=== PATIENT | female | born 1990 | race Caucasian/White ===

== ENCOUNTER 2024-02-11 05:40 | Day surgery (SDC) | payer OTHER ==
[2024-01-22 16:16] VITALS: BP 123/66
[~2024-02-11] VITALS: Ht 167.6 cm; Wt 75.0 kg
[~2024-02-11 05:40] MED LIST: CEFAZOLIN SODIUM 1 GM/10 ML SYR IV SCH; IBLOOD GLUCOSE TEST STRIP 1 EA TEST VI PRN; LACTATED RINGER'S 1,000 ML IV SCH; LIDOCAINE HCL 1% 5 ML SDV INJ ONE
[2024-02-11 06:06] VITALS: BP 134/82
[2024-02-11] MEDS ORDERED: Ropivacaine HCl 0.5% 30 ML VIAL ONE (06:06)
[2024-02-11] MEDS ORDERED: LIDOCAINE HCL 2% 20 ML MDV ONE (06:07)
[2024-02-11] MEDS ORDERED: DEXAMETHASONE SOD PHOS 4 MG/ML VIAL ONE ×2 (06:07→06:55)
[2024-02-11] MEDS ORDERED: KETOROLAC TROMETHAMINE 30 MG/ML VIAL ONE (06:55)
[2024-02-11] MEDS ORDERED: ondansetron HCL 4 MG/2 ML VIAL ONE (06:55)
[2024-02-11] MEDS ORDERED: propofoL 200 MG/20 ML VIAL ONE (06:55)
[2024-02-11] MEDS ORDERED: ACETAMINOPHEN 1,000 MG/100 ML VIAL ONE (06:55)
[2024-02-11] MEDS ORDERED: LIDOCAINE HCL 1% 5 ML SDV INJ ONE (07:00)
[2024-02-11] MEDS ORDERED: IBLOOD GLUCOSE TEST STRIP 1 EA TEST VI PRN ×2 (07:00→07:15)
[2024-02-11] MEDS ORDERED: CEFAZOLIN SODIUM 1 GM/10 ML SYR IV SCH (07:00)
[2024-02-11] MEDS ORDERED: fentaNYL citrate 100 MCG/2 ML VIAL ONE (07:05)
[2024-02-11] MEDS ORDERED: droPERidol 5 MG/2 ML VIAL IV PRN (07:15)
[2024-02-11] MEDS ORDERED: NALOXONE HCL 0.4 MG SYR IV PRN (07:15)
[2024-02-11] MEDS ORDERED: ondansetron HCL 4 MG/2 ML VIAL IV PRN (07:15)
[2024-02-11] MEDS ORDERED: fentaNYL citrate 50 MCG/ML SDV IV PRN (07:15)
--- NOTE | 2024-02-11 07:20 | NUR ---
PT GONE FOR PROCEDURE. PROVIDED PRAYER.
[2024-02-11] MEDS ORDERED: ePHEDrine sulfate 50 MG/ML AMP ONE (07:55)
--- NOTE | 2024-02-11 09:58 | NUR ---
02/11/24 0958 Ese Ruiz 0918 PT ARRIVED IN PACU SLEEPY WITH NO C/O'S. R FOOT ELEVATED ON PILLOW. 924 3 VIEW XRAY OF R FOOT DONE. 929 C/O NAUSEA. COOL AIR ON PT. 933 INAPSINE 0.625MG GIVEN IV. 939 EATING ICE CHIPS PER REQUEST. BLANKETS, L SCD AND SOCK REMOVED R/T FEELING WARM. 949 RESTING. REU.
[2024-02-11 10:10] VITALS: BP 115/60
--- NOTE | 2024-02-11 10:24 | NUR ---
BOBBY 1007 PATIENT INTO DAY SURGERY ROOM 5. VITAL SIGNS COMPLETED. PATIENT ALERT AND ORIENTED. PATIENT A BIT NAUSEATED. PATIENT EATING ICE CHIPS AND RECIEVED MEDICATIONS FROM THE RODENT CONTROL WORKER. PATIENT DENIES PAIN AT THIS TIME. PATIENT PULSES FELT STRONG. PATIENT CAP REFILL LESS THAN 2 SECONDS. IVF INFUSING. SCD'S ON. AT BEDSIDE. DRINKING WATER AND GIVEN JELLO. CALL LIGHT WITHIN REACH NO FUTHER NEEDS. NO QUESITONS.
[2024-02-11 11:05] VITALS: BP 106/74
--- NOTE | 2024-02-11 11:23 | NUR ---
LE 1050 PATIENT NON WEIGHT BEARING TO THE RESTROOM VOIDED CLEAR, AND YELLOW URINE. PATIENT DRESSED SELF WELL. PATIENT GIVEN DISCHARGE INSTRUCTIONS. NO QUESITONS AT THSI TIME. IV D/C'D WNL. PATIENT WHEELED OUT OF FACILITY NO FUTHER NEEDS.
--- NOTE | 2024-02-11 17:16 | OR ---
[facility] [address] [place], [place] [address] Signed DATE OF OPERATION: 02/11/2024 SURGEON: Morris Cruz DPM PREOPERATIVE DIAGNOSES: 1. Hallux rigidus. 2. Hallux valgus, right foot. POSTOPERATIVE DIAGNOSES: 1. Hallux rigidus. 2. Hallux valgus, right foot. TAILER OFF SURGEON: Rl Taveras DPM ANESTHESIA: IV general with local block, right foot. OCCUPATIONAL ANALYST: Bandar Bullock. SPECIMEN TO PATHOLOGY: None. PROCEDURE: Hallux rigidus/hallux valgus correction, right foot. PROCEDURE IN DETAIL: The patient was brought to the operating room and placed on the table in the supine position. Anesthesia Department administered IV sedation after which a local block was given to the right foot using a total of 7 mL 1:1 mixture, 2% lidocaine plain and 0.5% ropivacaine plain. The right leg and foot was then prepped and draped in the usual sterile manner and an Esmarch was used for hemostasis. Attention was initially directed to the dorsal/medial aspect right 1st MPJ where a linear longitudinal incision was made 6-8 cm in length. The incision was initially full-thickness through the dermis, then deepened through subcutaneous tissue using careful dissection and cautery as necessary for hemostasis. Once at the level of deep fascia and joint capsule, the incision was deepened to bone and reflected medially to expose the bony prominence at the medial 1st metatarsal head. Bony prominence was then Electronically Signed By: MORRIS CRUZ DPM 02/11/24 1716 PATIENT NAME: CLEMENTE CORDOVA OPERATIVE REPORT DATE OF : [birth year] REPORT #: [id number] PHYSICIAN: MORRIS CRUZ DPM PCP: BEVERLEY REN PA-C REPORT IS CONFIDENTIAL AND NOT TO BE RELEASED WITHOUT AUTHORIZATION [facility] [address] [place], [place] [address] Signed resected using power instrumentation, removing approximately 2 mm of bone and creating a flat surface on the medial 1st metatarsal head, parallel with 2nd metatarsal. At this time attention was directed to the 1st inter-metatarsal space where a lateral release was performed. The vallux plate was then attached to the medial 1st metatarsal head positioned as far superior as possible. Two screws were used through the plate into the 1st metatarsal head. The base of the plate then used as the osteotomy guide and a transverse osteotomy made through the 1st metatarsal. The 1st metatarsal then shifted laterally and plantarly and temporarily secured with a K-wire. Position then checked with intraoperative fluoroscopy, to confirm the position and alignment. Proximal screws were then placed through the plate into the proximal side of the 1st metatarsal osteotomy using a total of four screws in the plate. Following placement of the screws, final images were taken to confirm the position of the plate and alignment of the 1st metatarsal. This appears to have provided adequate lateral translation as well as plantar translation, which was the primary concern for the hallux rigidus issue. A small remaining ridge of bone at the medial aspect of the proximal osteotomy site was then smoothed using power instrumentation, the surgical site irrigated with copious amounts of normal saline, then wound closure performed. Wound closure performed using 3-0 Vicryl for joint capsule closure, 4-0 Vicryl for subcutaneous closure and skin david for skin closure. Dressings were applied using Adaptic, Betadine-soaked gauze, dry gauze, Flexicon, and Coban for mild compression. The dressings were also used to splint the position to the hallux. INTRAOPERATIVE COMPLICATIONS: None. ESTIMATED BLOOD LOSS: Less than 5 mL. The patient tolerated the procedure and the anesthesia well and left the operating room with vital signs stable and vascular status intact to the right foot as evidenced by hyperemia with removal of the Esmarch. Morris Cruz DPM Electronically Signed By: MORRIS CRUZ DPM 02/11/24 1716 PATIENT NAME: CLEMENTE CORDOVA OPERATIVE REPORT DATE OF : [birth year] REPORT #: [id number] PHYSICIAN: MORRIS CRUZ DPM PCP: BEVERLEY REN PA-C REPORT IS CONFIDENTIAL AND NOT TO BE RELEASED WITHOUT AUTHORIZATION [facility] [address] [place] [id number] Signed SUSAN/JENN /[id number] Copies: ~ Electronically Signed By: MORRIS CRUZ DPM 02/11/24 1716 PATIENT NAME: CLEMENTE CORDOVA OPERATIVE REPORT DATE OF : [birth year] REPORT #: [id number] PHYSICIAN: MORRIS CRUZ DPM PCP: BEVERLEY REN PA-C REPORT IS CONFIDENTIAL AND NOT TO BE RELEASED WITHOUT AUTHORIZATION
== END 2024-02-11 11:05 | disposition home or self-care (01) ==
LOC: DS 05:40
PROVIDERS: ATTEND Podiatrist Foot Surgery
PROC: 0QSN04Z Reposition Right Metatarsal with Internal Fixation Device, Open Approach (ICD-10-PCS; principal; 2024-02-11 07:30)
DX: M20.11 Hallux valgus (acquired), right foot (principal); M20.21 Hallux rigidus, right foot
CPT/HCPCS: 73630; 73660; 84703; J0131; J0690; J1100; J1790; J1885; J2405; J2704; J2795; J3010; J7121